=== PATIENT | male | born 1965 | race Two or more races ===

== ENCOUNTER 2017-09-20 14:10 | Inpatient (IN) | payer SELFPAY ==
[~2017-09-20] VITALS: Ht 175.3 cm; Wt 76.2 kg
[2017-09-20] VITALS (15 sets, daily range): BP systolic 51–109; BP diastolic 19–53
[~2017-09-20 14:10] MED LIST: ATROPINE SULFATE 1MG/10ML SYR ONE
[2017-09-20] MEDS ORDERED: PANTOPRAZOLE 80 MG in SODIUM CHLORIDE 0.9% 100 ML IV STA (16:12)
[2017-09-20] MEDS ORDERED: OCTREOTIDE ACETATE 50 MCG/ML 1ML IV STA ×2 (16:12→19:39)
[2017-09-20] MEDS ORDERED: PANTOPRAZOLE SODIUM 40 MG/VIAL IV STA (16:12)
[2017-09-20] MEDS ORDERED: OCTREOTIDE 1,000 MCG in SODIUM CHLORIDE 0.9% 100 ML IV STA (16:12)
[2017-09-20] MEDS ORDERED: LEVETIRACETAM 500MG PREMIX 100 ML IV ONE (16:15)
[2017-09-20] MEDS ORDERED: SODIUM CHLORIDE 0.9% 1000ML BAG (SEPSIS BOLUS) IV ONE (16:15)
[2017-09-20 16:41] LABS: BASOPHILS % 0.4 % (0.0-2.0); LYMPHOCYTES % 10.8 % (20.0-50.0); MEAN CORPUSCULAR HEMOGLOBIN 20.3 pg (28.0-32.0); MEAN CORPUSCULAR VOLUME 77.9 fL (80.0-94.0); MEAN PLATELET VOLUME 10.5 fl (7.4-10.4); NEUTROPHILS % 80.8 % (40.0-76.0); PLATELET 160 x1000/uL (130-400); RED BLOOD CELL COUNT 3.07 mill/uL (4.7-6.1); RED CELL DISTRIBUTION WIDTH 22.3 % (11.6-14.6)
[2017-09-20 16:45] LABS: INR 1.4; PARTIAL THROMBOPLASTIN TIME 47.1 sec (23.4-31.0)
[2017-09-20 16:47] LABS: CHLORIDE 102 mEq/L (98-107)
[2017-09-20 16:48] LABS: AMMONIA 146 uMol/L (<32)
[2017-09-20 16:49] LABS: HEMOGLOBIN. 6.2 g/dL (14.0-18.0)
[2017-09-20 16:50] LABS: ETHANOL BLOOD 228 mg/dL
[2017-09-20 16:54] LABS: CARBON DIOXIDE 9 mEq/L (21-32)
[2017-09-20 16:55] LABS: TROPONIN I 0.04 ng/mL (0.00-0.04)
[2017-09-20 17:03] LABS: PLATELET ESTIMATE NORMAL
[2017-09-20] MEDS ORDERED: INSULIN REGULAR (DRIP) 100 UNITS in SODIUM CHLORIDE 0.9% 100 ML IV ONE (17:06)
[2017-09-20] MEDS ORDERED: INSULIN REGULAR (HUMULIN R) UD 100 UNITS/ML SYR IV ONE (17:15)
[2017-09-20] MEDS ORDERED: KCL 20MEQ/100ML PREMIX 100 ML IV ONE (17:30)
[2017-09-20] MEDS ORDERED: PANTOPRAZOLE 80 MG in SODIUM CHLORIDE 0.9% 100 ML IV SCH (17:30)
[2017-09-20] MEDS ORDERED: OCTREOTIDE 1,000 MCG in SODIUM CHLORIDE 0.9% 100 ML IV SCH (17:30)
[2017-09-20] MEDS ORDERED: OCTREOTIDE 1,000 MCG in SODIUM CHLORIDE 0.9% 98 ML SUBCUT SCH (17:30)
[2017-09-20] MEDS ORDERED: INSULIN REGULAR (DRIP) 100 UNITS in SODIUM CHLORIDE 0.9% 100 ML IV SCH ×3 (17:30→23:30)
[2017-09-20 17:35] LABS: BG BASE EXCESS -22.7 mmol/L (-2.0-2.0); BG CARBOXYHEMOGLOBIN 1.3 % (0.5-1.5); BG DEOXYHEMOGLOBIN 2.4 % (0.0-5.0); BG FRACTION INSPIRED OXYGEN 28; BG HCO3 ACT 5.8 mmol/L (22.0-26.0); BG OXYGEN SATURATION 97.6 % (92.0-98.5); BG OXYHEMOGLOBIN 96.3 % (94.0-97.0); BG PCO2 21.6 mmHg (35.0-45.0); BG PH 7.046 (7.350-7.450); BG PO2 145.1 mmHg (75.0-100.0); BG SAMPLE SITE RIGHT RADIAL; BG VENT MODE NASAL CANNULA
[2017-09-20 17:56] LABS: PHOSPHORUS 8.8 mg/dL (2.5-4.9)
[2017-09-20] MEDS ORDERED: NA PHOS,M-B/NA PHOS,DI-BA ENEMA 118ML PR PRN (18:00)
[2017-09-20] MEDS ORDERED: ACETAMINOPHEN 325MG TABLET PO PRN (18:00)
[2017-09-20] MEDS ORDERED: MAGNESIUM/ALUMINUM HYDROXIDE/SIMETHICONE 30ML UDC PO PRN (18:00)
[2017-09-20] MEDS ORDERED: MORPHINE SULFATE 2 MG/ML CPJ (NOT FOR IM USE) IV PRN (18:00)
[2017-09-20] MEDS ORDERED: LORAZEPAM 2MG/ML CPJ IV PRN (18:00)
[2017-09-20] MEDS ORDERED: DIPHENHYDRAMINE 50MG/ML VIAL IV PRN (18:00)
[2017-09-20] MEDS ORDERED: ONDANSETRON HCL 4MG/2ML VIAL IV PRN (18:00)
[2017-09-20] MEDS ORDERED: DOCUSATE SODIUM 100MG CAPSULE PO PRN (18:00)
[2017-09-20] MEDS ORDERED: GUAIFENESIN 200MG/10ML SUGAR FREE UDC PO PRN (18:00)
[2017-09-20] MEDS ORDERED: HYDROCODONE/ACETAMINOPHEN 5/325MG TABLET PO PRN (18:00)
[2017-09-20] MEDS ORDERED: IPRATROPIUM/ALBUTEROL 0.5-3(2.5)MG/3ML NEB INH PRN (18:00)
[2017-09-20] MEDS ORDERED: CLONIDINE 0.1MG TABLET PO PRN (18:00)
[2017-09-20 18:21] LABS: HEPATITIS B SURFACE ANTIGEN NEGATIVE
[2017-09-20 18:50] LABS: HEPATITIS B CORE AB IGM NEGATIVE
[2017-09-20 18:51] LABS: HEPATITIS A AB IGM NEGATIVE (NEGATIVE)
[2017-09-20] MEDS ORDERED: VANCOMYCIN 1 G PREMIX 200 ML IV SCH (19:15)
[2017-09-20] MEDS ORDERED: PIPERACILLIN/TAZ 3.375G PREMIX 50 ML IV ONE (19:15)
[2017-09-20] MEDS ORDERED: PROPOFOL 10MG/ML 100ML 100 ML IV ONE (19:20)
[2017-09-20] MEDS ORDERED: PROPOFOL 10MG/ML 100ML 100 ML IV SCH (19:30)
[2017-09-20] MEDS ORDERED: POTASSIUM CHLORIDE INJ 20 MEQ in DEXT 5% WATER 100 ML IV SCH (19:30)
[2017-09-20] MEDS ORDERED: POTASSIUM CHLORIDE INJ 20 MEQ in SODIUM CHLORIDE 0.9% 100 ML IV SCH (19:45)
[2017-09-20 20:15] LABS: PHOSPHORUS 8.4 mg/dL (2.5-4.9)
[2017-09-20 20:31] LABS: BG BASE EXCESS -25.1 mmol/L (-2.0-2.0); BG CARBOXYHEMOGLOBIN 0.2 % (0.5-1.5); BG DEOXYHEMOGLOBIN 3.1 % (0.0-5.0); BG FRACTION INSPIRED OXYGEN 50; BG HCO3 ACT 4.9 mmol/L (22.0-26.0); BG METHEMOGLOBIN 0.4 % (0.0-1.5); BG OXYGEN SATURATION 96.9 % (92.0-98.5); BG OXYHEMOGLOBIN 96.3 % (94.0-97.0); BG PH 6.949 (7.350-7.450); BG PIP 47 cmH2O; BG PO2 141.7 mmHg (75.0-100.0); BG SAMPLE SITE RIGHT BRACHIAL; BG TIDAL VOLUME(mL) 600 mL; BG TOTAL HEMOGLOBIN 6.8 g/dL (12.0-18.0); BG VENT MODE VENT - A/C; BG VENT RATE 20 set
[2017-09-20] MEDS ORDERED: SODIUM BICARBONATE 8.4% 1 MEQ/ML 50ML SYR IV ONE (20:45)
[2017-09-20] MEDS: SODIUM CHLORIDE 0.9% 1,000 ML IV SCH (20:48)
[2017-09-20 20:54] LABS: CLARITY URINE CLOUDY (CLEAR); COLOR URINE YELLOW (YELLOW); KETONES URINE NEGATIVE (NEGATIVE); LEUKOCYTE ESTERASE URINE NEGATIVE (NEGATIVE); NITRITE URINE NEGATIVE (NEGATIVE); OCCULT BLOOD URINE TRACE (NEGATIVE); PH URINE 5.5 (4.5-8.0); PROTEIN URINE 1+ (NEGATIVE); SPECIFIC GRAVITY URINE 1.032 (1.005-1.030); UROBILINOGEN URINE 0.2 E.U./dL (0.2-1.0)
[2017-09-20] MEDS ORDERED: LACTULOSE 20G/30ML UDC PO ONE (21:15)
[2017-09-20 22:23] LABS: PHOSPHORUS 8.7 mg/dL (2.5-4.9)
[2017-09-20] MEDS ORDERED: DEXTROSE 50% WATER 50ML SYRINGE IV PRN ×2 (22:45)
[2017-09-20] MEDS: BLOOD SUGAR DIAGNOSTIC STRIP TEST SCH (23:00)
[2017-09-21] VITALS (65 sets, daily range): BP systolic 43–112; BP diastolic 19–66
[2017-09-21] MEDS ORDERED: DOPAMINE 400MG PREMIX 250 ML IV PRN (00:15)
[2017-09-21] MEDS: IPRATROPIUM/ALBUTEROL 0.5-3(2.5)MG/3ML NEB HHN SCH ×3 (00:28→09:15)
[2017-09-21] MEDS ORDERED: NOREPINEPHRINE 4 MG in DEXT 5% WATER 246 ML IV PRN (00:30)
[2017-09-21] MEDS: INSULIN REGULAR (DRIP) 100 UNITS in SODIUM CHLORIDE 0.9% 100 ML IV SCH ×3 (00:42→08:33)
[2017-09-21] MEDS: DOPAMINE HCL 400 MG in DEXT 5% WATER 250 ML IV SCH ×3 (00:46→08:37)
[2017-09-21] MEDS: BLOOD SUGAR DIAGNOSTIC STRIP TEST SCH ×12 (00:47→11:00)
[2017-09-21] MEDS: SODIUM CHLORIDE 0.9% 1,000 ML IV SCH ×5 (01:25→11:40)
[2017-09-21 02:02] LABS: BG BASE EXCESS -28.7 mmol/L (-2.0-2.0); BG CARBOXYHEMOGLOBIN 0.7 % (0.5-1.5); BG DEOXYHEMOGLOBIN 0.4 % (0.0-5.0); BG FRACTION INSPIRED OXYGEN 100; BG HCO3 ACT 3.3 mmol/L (22.0-26.0); BG OXYGEN SATURATION 99.6 % (92.0-98.5); BG OXYHEMOGLOBIN 97.9 % (94.0-97.0); BG PCO2 22.4 mmHg (35.0-45.0); BG PH 6.785 (7.350-7.450); BG PO2 443.8 mmHg (75.0-100.0); BG SAMPLE SITE LEFT RADIAL; BG TIDAL VOLUME(mL) 600 mL; BG TOTAL HEMOGLOBIN 5.5 g/dL (12.0-18.0); BG VENT MODE VENT - A/C; BG VENT RATE 20 set
[2017-09-21] MEDS ORDERED: SODIUM BICARBONATE 8.4% 1 MEQ/ML 50ML SYR IV SCH ×2 (02:15→09:45)
[2017-09-21] MEDS ORDERED: NOREPINEPHRINE 8 MG in DEXT 5% WATER 492 ML IV PRN (02:30)
[2017-09-21] MEDS ORDERED: PHENYLEPHRINE 20 MG in DEXT 5% WATER 248 ML IV PRN (04:30)
[2017-09-21] MEDS ORDERED: PANTOPRAZOLE 80 MG in SODIUM CHLORIDE 0.9% 100 ML IV PRN (04:30)
[2017-09-21 05:41] LABS: BASOPHILS % 0.2 % (0.0-2.0); EOSINOPHILS % 0.1 % (0.0-5.0); LYMPHOCYTES % 16.2 % (20.0-50.0); MEAN CORPUSCULAR HEMOGLOBIN 23.2 pg (28.0-32.0); MEAN CORPUSCULAR VOLUME 84.9 fL (80.0-94.0); MEAN PLATELET VOLUME 9.5 fl (7.4-10.4); MONOCYTES % 3.4 % (2.0-8.0); NEUTROPHILS % 80.1 % (40.0-76.0)
[2017-09-21] MEDS ORDERED: OCTREOTIDE 1,000 MCG in SODIUM CHLORIDE 0.9% 100 ML IV PRN (06:00)
[2017-09-21] MEDS ORDERED: NOREPINEPHRINE 32 MG in DEXT 5% WATER 468 ML IV PRN (06:00)
[2017-09-21 06:11] LABS: HEMATOCRIT. 13.6 % (42.0-52.0)
[2017-09-21 06:12] LABS: CHLORIDE 110 mEq/L (98-107); HDL CHOLESTEROL 27 mg/dL (40-59); T4 FREE 0.65 ng/dL (0.76-1.46)
[2017-09-21 06:16] LABS: HEMOGLOBIN. 3.7 g/dL (14.0-18.0)
[2017-09-21 06:40] LABS: LDL CHOLESTEROL 9 mg/dL (5-100)
[2017-09-21 06:42] LABS: CARBON DIOXIDE 6 mEq/L (21-32)
[2017-09-21] MEDS: PHENYLEPHRINE 40 MG in DEXT 5% WATER 246 ML IV PRN ×2 (06:43→10:08)
[2017-09-21] MEDS ORDERED: SODIUM CHLORIDE 0.9% 1000ML BAG (SEPSIS BOLUS) IV ONE (06:45)
[2017-09-21] MEDS: VASOPRESSIN 10 UNIT in SODIUM CHLORIDE 0.9% 99.5 ML IV PRN ×2 (07:52→12:24)
[2017-09-21] MEDS ORDERED: PHYTONADIONE 10MG/ML AMP SUBCUT SCH (08:00)
[2017-09-21] MEDS ORDERED: SODIUM CHLORIDE 0.9% 1,000 ML IV ONE (08:45)
[2017-09-21] MEDS ORDERED: PANTOPRAZOLE SODIUM 40 MG/VIAL IV SCH ×2 (09:00→17:00)
[2017-09-21] MEDS ORDERED: DOPAMINE HCL 800 MG in DEXT 5% WATER 490 ML IV SCH (09:30)
[2017-09-21 09:35] LABS: BG HCO3 ACT 3.3 mmol/L (22.0-26.0); BG PCO2 18.3 mmHg (35.0-45.0); BG PH 6.874 (7.350-7.450); BG PO2 336.9 mmHg (75.0-100.0); BG SAMPLE SITE RIGHT RADIAL; BG TIDAL VOLUME(mL) 600 mL; BG TOTAL HEMOGLOBIN < 4.5 g/dL (12.0-18.0); BG VENT MODE VENT - A/C; BG VENT RATE 24 set
[2017-09-21 09:36] LABS: BASOPHILS % 0.2 % (0.0-2.0); EOSINOPHILS % 0.1 % (0.0-5.0); LYMPHOCYTES % 19.8 % (20.0-50.0); MEAN CORPUSCULAR HEMOGLOBIN 26.3 pg (28.0-32.0); MEAN CORPUSCULAR VOLUME 91.9 fL (80.0-94.0); MEAN PLATELET VOLUME 9.6 fl (7.4-10.4); MONOCYTES % 6.2 % (2.0-8.0); NEUTROPHILS % 73.7 % (40.0-76.0); RED BLOOD CELL COUNT 1.68 mill/uL (4.7-6.1)
[2017-09-21 09:54] LABS: HEMATOCRIT 15.5 % (42.0-52.0); HEMATOCRIT. 15.5 % (42.0-52.0); HEMOGLOBIN 4.4 g/dL (14.0-18.0); HEMOGLOBIN. 4.4 g/dL (14.0-18.0)
[2017-09-21 10:46] LABS: PROTHROMBIN TIME > 100.0 sec (9.4-11.6)
[2017-09-21 10:50] LABS: INR > 10.0
[2017-09-21] MEDS ORDERED: LACTULOSE 300 ML in WATER FOR INJECTION,STERILE 700 ML PR SCH (11:00)
[2017-09-21] MEDS ORDERED: MORPHINE SULFATE 100 MG in SODIUM CHLORIDE 0.9% 90 ML IV PRN (11:30)
[2017-09-21 13:27] LABS: PLATELET 29 x1000/uL (130-400)
[2017-09-21 13:30] LABS: PLATELET 47 x1000/uL (130-400)
[2017-09-21 14:33] LABS: *AMPHETAMINES SCREEN URINE PRESUMTIVE POSITIVE (NEGATIVE); *BARBITURATES SCREEN URINE NEGATIVE (NEGATIVE); *BENZODIAZEPINES SCREEN URINE NEGATIVE (NEGATIVE); *COCAINE SCREEN URINE NEGATIVE (NEGATIVE); CANNABINOID URINE SCREEN PRESUMTIVE POSITIVE (NEGATIVE); METHADONE URINE SCREEN NEGATIVE (NEGATIVE); OPIATES URINE SCREEN NEGATIVE (NEGATIVE); PHENCYCLIDINE URINE SCREEN NEGATIVE (NEGATIVE)
== END 2017-09-21 15:07 | disposition expired | DRG 816 ==
LOC: ER 14:32 → EDBEDREQ 16:17 → MICUNO 17:20 → EDBEDREQ 17:21 → ENRESERV 19:36
PROVIDERS: ADMIT Internal Medicine; ATTEND Internal Medicine
PROC: 0BH17EZ Insertion of Endotracheal Airway into Trachea, Via Natural or Artificial Opening (ICD-10-PCS; principal; 2017-09-20)
PROC: 5A1935Z Respiratory Ventilation, Less than 24 Consecutive Hours (ICD-10-PCS; 2017-09-20)
PROC: 06HM33Z Insertion of Infusion Device into Right Femoral Vein, Percutaneous Approach (ICD-10-PCS; 2017-09-20)
PROC: 0RSKXZZ Reposition Left Shoulder Joint, External Approach (ICD-10-PCS; 2017-09-20)
PROC: 2W3BXYZ Immobilization of Left Upper Arm using Other Device (ICD-10-PCS; 2017-09-20)
PROC: 30233N1 Transfusion of Nonautologous Red Blood Cells into Peripheral Vein, Percutaneous Approach (ICD-10-PCS; 2017-09-20)
PROC: 30233R1 Transfusion of Nonautologous Platelets into Peripheral Vein, Percutaneous Approach (ICD-10-PCS; 2017-09-21)
DX: T51.0X1A Toxic effect of ethanol, accidental (unintentional), initial encounter (principal); J96.00 Acute respiratory failure, unspecified whether with hypoxia or hypercapnia; R57.1 Hypovolemic shock; E43 Unspecified severe protein-calorie malnutrition; G93.40 Encephalopathy, unspecified; E11.10 Type 2 diabetes mellitus with ketoacidosis without coma; N17.9 Acute kidney failure, unspecified; D68.9 Coagulation defect, unspecified; N18.3 Chronic kidney disease, stage 3 (moderate); K85.90 Acute pancreatitis without necrosis or infection, unspecified; E11.22 Type 2 diabetes mellitus with diabetic chronic kidney disease; D69.6 Thrombocytopenia, unspecified; E83.39 Other disorders of phosphorus metabolism; B19.20 Unspecified viral hepatitis C without hepatic coma; D64.9 Anemia, unspecified; F10.229 Alcohol dependence with intoxication, unspecified; S43.015A Anterior dislocation of left humerus, initial encounter; K92.2 Gastrointestinal hemorrhage, unspecified; K72.90 Hepatic failure, unspecified without coma; Z78.1 Physical restraint status; Z91.19 Patient's noncompliance with other medical treatment and regimen; Y92.89 Other specified places as the place of occurrence of the external cause; Z68.24 Body mass index [BMI] 24.0-24.9, adult
CPT/HCPCS: 31500; 36415; 36600; 70450; 71010; 73030; 80048; 80053; 80061; 80305; 81001; 82140; 82375; 82805; 82962; 83036; 83605; 83690; 83735; 83880; 84100; 84439; 84443; 84484; 85014; 85018; 85025; 85379; 85610; 85730; 86705; 86709; 86803; 86850; 86900; 86920; 87040; 87086; 87106; 87340; 93005; 93306; 94002; 94640; C9113; G0482; J0461; J1265; J1815; J1953; J2354; J2370; J2543; J2704; J3370; J3430; J3480; J3490; J7030; J7040; J7050; J7060; J7620; L1830; P9016; P9021; P9034; A4315